=== PATIENT | male | born 1955 | race Caucasian/White ===

== ENCOUNTER 2022-03-27 07:42 | Outpatient (CLI) | payer OTHER, SELFPAY | END 2022-03-27 07:43 | disposition home or self-care (01) | PROVIDERS: PCP Family Medicine | DX: H90.3 Sensorineural hearing loss, bilateral (principal) | CPT/HCPCS: 92557; 92567 ==

== ENCOUNTER 2022-05-18 08:44 | Outpatient (CLI) | payer OTHER, SELFPAY | END 2022-05-18 08:45 | disposition home or self-care (01) | PROVIDERS: PCP Family Medicine | DX: H65.493 Other chronic nonsuppurative otitis media, bilateral (principal) | CPT/HCPCS: 92557; 92567 ==

== ENCOUNTER 2022-07-03 09:00 | Outpatient (RCR) | payer OTHER, MEDICAID, SELFPAY | END 2022-09-03 23:59 | disposition home or self-care (01) | LOC: ANHBWCAUD 09:00 | PROVIDERS: PCP Family Medicine; Visit Provider Family Medicine | DX: Z46.1 Encounter for fitting and adjustment of hearing aid (principal) | CPT/HCPCS: 99199; V5261; V5264 ==

== ENCOUNTER 2023-01-22 14:54 | Outpatient (CLI) | payer OTHER, MEDICAID, SELFPAY | END 2023-01-22 14:55 | disposition home or self-care (01) | PROVIDERS: PCP Family Medicine; Visit Provider Family Medicine | DX: Z01.12 Encounter for hearing conservation and treatment (principal) | CPT/HCPCS: 99199 ==